=== PATIENT | female | born 1965 | race Caucasian/White ===

== ENCOUNTER 2019-07-08 23:41 | Emergency (ER) | payer SELFPAY ==
[~2019-07-08] VITALS: Ht 149.9 cm; Wt 66.8 kg
[2019-07-08 23:47] VITALS: BP 130/69
[2019-07-08] MEDS ORDERED: ACETAMINOPHEN 500 MG TABLET ONE (23:57)
[2019-07-09] MEDS ORDERED: ACETAMINOPHEN 500 MG TABLET PO ONE
--- NOTE | 2019-07-09 00:09 | NUR ---
BARRIER CREAM APPLIED TO THE PT GWEN FT, 2X2 APPLIED BETWEEN TOES TO KEEP FROM RUBBING TOGETHER. CLEAN PAIR OF SOCKS AND LARGER SHOES PROVIDED FOR THE PT. A WINTER COAT AND MITTENS PROVIDED WELL.
--- NOTE | 2019-07-09 00:19 | NUR ---
TYLENOL GIVEN FOR GWEN FT PAIN. THE PT IS RESTING AT THIS TIME. NO DISTRESS. NO NON-VERBAL S/S OF PAIN OR DISCOMFORT.
--- NOTE | 2019-07-09 01:48 | NUR ---
TAXI VOUCHER GIVEN TO THE PT TO THE HOMELESS RESIDENTIAL.
== END 2019-07-09 01:10 ==
LOC: ED 07-09 01:10
DX: S90.822A Blister (nonthermal), left foot, initial encounter (principal); S90.821A Blister (nonthermal), right foot, initial encounter; M79.672 Pain in left foot; M79.671 Pain in right foot; X58.XXXA Exposure to other specified factors, initial encounter; Y93.89 Activity, other specified; Y92.89 Other specified places as the place of occurrence of the external cause; Y99.8 Other external cause status
CPT/HCPCS: 99283